=== PATIENT | female | born 1995 | race Caucasian/White ===

== ENCOUNTER → 2022-08-13 | Outpatient (CLI) | payer BC ==
[~2022-08-13] MED LIST: MONT10T PO; Pulmicort Fle180 MCG; SERT25 PO; SERT50 PO
[2022-08-13 19:46] LABS: Albumin, Blood 2.8 g/dL (3.4-5.0); Albumin/Globulin Ratio 0.8 (0.8-1.8); Bilirubin, Total 0.4 mg/dL (0.1-1.0); Bun/Creatinine Ratio 8.3 (12.0-20.0); Calcium, Blood 8.8 mg/dL (8.5-10.1); Creatinine, Blood 0.73 mg/dL (0.40-1.00); Globulin, Blood 3.3 g/dL (2.2-4.0); Potassium, Blood 3.7 mmol/L (3.5-5.5); Total Protein, Blood 6.1 g/dL (6.4-8.2)
[2022-08-19 16:08] LABS: CHENODEOXYCHOLIC ACIDS 1.3 umol/L (.); CHOLIC ACIDS 1.5 umol/L (.); TOTAL BILE ACIDS 3.1 umol/L (.); URSODEOXYCHOLIC ACIDS <0.10 umol/L (.)
== END | disposition home or self-care (01) ==
LOC: LAB 15:50 → LAB SHORT 15:50
PROVIDERS: Advanced Practice Midwife
DX: O09.93 Supervision of high risk pregnancy, unspecified, third trimester (principal); Z3A.00 Weeks of gestation of pregnancy not specified
CPT/HCPCS: 36415; 80053; 82542; 87081; 87150

== ENCOUNTER 2022-09-02 05:14 | Inpatient (IN) | payer BC ==
[2022-09-02] VITALS (14 sets, daily range): BP systolic 97–142; BP diastolic 55–77
[~2022-09-02] VITALS: Ht 157.5 cm; Wt 68.6 kg
[2022-09-02] MEDS ORDERED: SERT25 PO (06:13)
[2022-09-02] MEDS ORDERED: MONT10T PO (06:13)
[2022-09-02] MEDS ORDERED: SERT50 PO (06:14)
[2022-09-02] MEDS ORDERED: Pulmicort Fle180 MCG (06:16)
[2022-09-02 06:44] LABS: BASOPHILS ABSOLUTE AUTO 0.03 K/mm3 (0.00-0.23); BASOPHILS PERCENT AUTO 0 % (0-2); EOSINOPHILS ABSOLUTE AUTO 0.02 K/mm3 (0.00-0.68); EOSINOPHILS PERCENT AUTO 0 % (0-6); IMMATURE GRAN ABSOLUTE AUTO 0.03 K/mm3 (0.00-0.10); IMMATURE GRAN PERCENT AUTO 0 % (0-1); LYMPHOCYTES ABSOLUTE AUTO 1.12 K/mm3 (0.84-5.20); LYMPHOCYTES PERCENT AUTO 13 % (21-46); MONOCYTES ABSOLUTE AUTO 0.42 K/mm3 (0.16-1.47); MONOCYTES PERCENT AUTO 5 % (4-13); Mean Corpuscular HGB 33.2 pg (26.0-34.0); Mean Corpuscular HGB Conc 34.2 g/dL (31.5-36.5); Mean Corpuscular Volume 97 fL (80-100); NEUTROPHILS ABSOLUTE AUTO 6.76 K/mm3 (1.96-9.15); NEUTROPHILS PERCENT AUTO 81 % (41-73); Platelet Count 143 K/mm3 (150-400); RDW Coefficient Variation 12.5 % (11.7-14.2); Red Blood Cell Count 3.91 M/mm3 (3.80-5.20); White Blood Cell Count 8.38 K/mm3 (4.00-11.30)
--- NOTE | 2022-09-02 11:01 | NUR ---
ASSUMED CARE OF PT
--- NOTE | 2022-09-02 11:07 | NUR ---
PT HAS ANAPHYLXIS REACTION TO GLUTEAN AND WHEAT, NOT SURE IF HOSP MOTRIN HAS THAT, PT IS GOING TO BRING HER MOTRIN FROM HOME THAT DOESNT HAVE THOSE,
--- NOTE | 2022-09-02 12:00 | NUR ---
PT GOT A LITTLE WEAK, NOT LIGHT HEADED IN SHOWER, GOT PT BACK TO BED, ENCORUAGED TO CALL RN TO HELP GET UP NEXT TIME JUST FOR STAND BY. PT IS BRINGING HER OWN MOTRIN THAT IS FRRE OF ALL THE STUFF THAT CAUSES HER TO HAVE ANAPHLYXIS REACTIONS.
--- NOTE | 2022-09-02 14:19 | NUR ---
PT TOOK 400MG OF HER OWN MOTRIN, SHE IS AWARE SHE CAN TAKE 400MG EVERY 4 HOURS NEEDED FOR CRAMPING, HER MOTRIN DOESNT HAVE ANYTHING SHE IS ALLERGIC TO. BABY WAKING, PT PLANS TO PUT BABY TO BREAST
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
[2022-09-03 06:21] LABS: Hematocrit 31.9 % (33.0-51.0); Hemoglobin 10.8 g/dL (11.5-16.0); Mean Corpuscular HGB 33.2 pg (26.0-34.0); Mean Corpuscular HGB Conc 33.9 g/dL (31.5-36.5); Mean Corpuscular Volume 98 fL (80-100); Mean Platelet Volume 12.9 fL (9.1-12.4); Platelet Count 114 K/mm3 (150-400); RDW Coefficient Variation 12.6 % (11.7-14.2); RDW Standard Deviation 44.9 fL (35.1-46.3); Red Blood Cell Count 3.25 M/mm3 (3.80-5.20)
[2022-09-03 07:54] VITALS: BP 118/73
--- NOTE | 2022-09-03 10:47 | NUR ---
D/C HOME WITH BABY.
== END 2022-09-03 10:50 | disposition home or self-care (01) | DRG 807 ==
LOC: OBS 05:14 → BC 05:17 → OBS 05:38 → BC 05:39
PROVIDERS: Advanced Practice Midwife; Obstetrics & Gynecology; ADMIT Advanced Practice Midwife
PROC: 10E0XZZ Delivery of Products of Conception, External Approach (ICD-10-PCS; principal; 2022-09-02)
PROC: 0HQ9XZZ Repair Perineum Skin, External Approach (ICD-10-PCS; 2022-09-02)
PROC: 10907ZC Drainage of Amniotic Fluid, Therapeutic from Products of Conception, Via Natural or Artificial Opening (ICD-10-PCS; 2022-09-02)
DX: O99.52 Diseases of the respiratory system complicating childbirth (principal); Z37.0 Single live birth; J45.909 Unspecified asthma, uncomplicated; O99.344 Other mental disorders complicating childbirth; F32.A Depression, unspecified; O70.0 First degree perineal laceration during delivery; O69.1XX0 Labor and delivery complicated by cord around neck, with compression, not applicable or unspecified; Z3A.39 39 weeks gestation of pregnancy; Z98.890 Other specified postprocedural states; Z88.8 Allergy status to other drugs, medicaments and biological substances; Z91.013 Allergy to seafood; Z91.018 Allergy to other foods; Z91.011 Allergy to milk products; Z91.030 Bee allergy status; Z88.1 Allergy status to other antibiotic agents; Z87.19 Personal history of other diseases of the digestive system
CPT/HCPCS: 36415; 59025; 81003; 85025; 85027; 86850; 86900; 86901; J2210; J2590; J7120

== ENCOUNTER → 2024-01-05 | Outpatient (CLI) | payer BC ==
[2024-01-05 10:03] LABS: BASOPHILS ABSOLUTE AUTO 0.02 K/mm3 (0.00-0.23); BASOPHILS PERCENT AUTO 0 % (0-2); EOSINOPHILS ABSOLUTE AUTO 0.05 K/mm3 (0.00-0.68); EOSINOPHILS PERCENT AUTO 1 % (0-6); Hematocrit 34.4 % (33.0-51.0); Hemoglobin 12.3 g/dL (11.5-16.0); IMMATURE GRAN ABSOLUTE AUTO 0.02 K/mm3 (0.00-0.10); IMMATURE GRAN PERCENT AUTO 0 % (0-1); LYMPHOCYTES ABSOLUTE AUTO 0.54 K/mm3 (0.84-5.20); LYMPHOCYTES PERCENT AUTO 8 % (21-46); MONOCYTES ABSOLUTE AUTO 0.35 K/mm3 (0.16-1.47); MONOCYTES PERCENT AUTO 5 % (4-13); Mean Corpuscular HGB 32.6 pg (26.0-34.0); Mean Corpuscular HGB Conc 35.8 g/dL (31.5-36.5); Mean Corpuscular Volume 91 fL (80-100); NEUTROPHILS ABSOLUTE AUTO 5.86 K/mm3 (1.96-9.15); NEUTROPHILS PERCENT AUTO 86 % (41-73); Platelet Count 189 K/mm3 (150-400); RDW Coefficient Variation 12.2 % (11.7-14.2); RDW Standard Deviation 40.7 fL (35.1-46.3); Red Blood Cell Count 3.77 M/mm3 (3.80-5.20); White Blood Cell Count 6.84 K/mm3 (4.00-11.30)
[2024-01-05 10:15] LABS: Albumin, Blood 3.8 g/dL (3.4-5.0); Bilirubin, Total 0.7 mg/dL (0.1-1.0); Bun/Creatinine Ratio 8.3 (12.0-20.0); Calcium, Blood 8.9 mg/dL (8.5-10.1); Creatinine, Blood 0.72 mg/dL (0.40-1.00); Globulin, Blood 3.7 g/dL (2.2-4.0); Potassium, Blood 3.7 mmol/L (3.5-5.5); Total Protein, Blood 7.5 g/dL (6.4-8.2)
== END ==
LOC: LAB SHORT 09:59 → LAB 09:59
PROVIDERS: Family Medicine
DX: R10.11 Right upper quadrant pain (principal)
CPT/HCPCS: 80053; 83690; 85025

== ENCOUNTER → 2024-03-08 | Outpatient (CLI) | payer BC | LOC: LAB 15:44 → LAB SHORT 15:44 | PROVIDERS: Advanced Practice Midwife | DX: Z01.419 Encounter for gynecological examination (general) (routine) without abnormal findings (principal) | CPT/HCPCS: G0123 ==

== ENCOUNTER → 2024-07-12 | Outpatient (CLI) | payer BC | LOC: LAB SHORT 16:17 → LAB 16:17 | DX: Z34.83 Encounter for supervision of other normal pregnancy, third trimester (principal) | CPT/HCPCS: 87081; 87150 ==

== ENCOUNTER 2024-08-08 12:09 | Inpatient (IN) | payer BC ==
[2024-08-08] VITALS (30 sets, daily range): BP systolic 101–142; BP diastolic 55–78
[~2024-08-08] VITALS: Ht 157.5 cm; Wt 67.3 kg
[2024-08-08] MEDS ORDERED: OXYTOCIN/RINGER'S LACTATE 500 ML IV PRN (12:35)
[2024-08-08] MEDS ORDERED: Lactated Ringer's 1,000 ML IV PRN ×2 (12:35)
[2024-08-08] MEDS ORDERED: Calcium Carbonate 500 MG Tab Chew PO SCH (12:35)
[2024-08-08] MEDS ORDERED: FentaNYL 2mcg/ml-Bup 0.1% Epd 250 ML EPI PRN (12:35)
[2024-08-08] MEDS ORDERED: Carboprost Tromethamine 250 MCG/ML 1ML Amp IM PRN ×2 (12:35→16:15)
[2024-08-08] MEDS ORDERED: Acetaminophen 500 MG Tab PO PRN ×2 (12:35→16:20)
[2024-08-08] MEDS ORDERED: Tranexamic Acid 100 ML IV SCH (12:35)
[2024-08-08] MEDS ORDERED: Lactated Ringer's 1,000 ML IV ONE (12:35)
[2024-08-08] MEDS ORDERED: Ondansetron HCl 2 MG / ML 2ML Vial IV PRN (12:35)
[2024-08-08] MEDS ORDERED: Misoprostol 200 MCG Tab BC PRN (12:35)
[2024-08-08] MEDS ORDERED: Misoprostol 200 MCG Tab PR PRN ×2 (12:35→16:10)
[2024-08-08] MEDS ORDERED: Methylergonovine Maleate 0.2MG / ML 1ML Amp IM PRN ×2 (12:35→16:15)
[2024-08-08] MEDS ORDERED: ePHEDrine Sulfate 50 MG/ML 1ML Injection XX PRN (12:35)
[2024-08-08] MEDS ORDERED: Oxytocin 10 Unit / ML Vial IM PRN (12:35)
[2024-08-08] MEDS ORDERED: FentaNYL Citrate 50 MCG/ML 2 ML Injection IV PRN (12:40)
[2024-08-08 13:00] LABS: BASOPHILS ABSOLUTE AUTO 0.04 K/mm3 (0.00-0.23); BASOPHILS PERCENT AUTO 0 % (0-2); EOSINOPHILS ABSOLUTE AUTO 0.04 K/mm3 (0.00-0.68); EOSINOPHILS PERCENT AUTO 0 % (0-6); Hematocrit 37.8 % (33.0-51.0); Hemoglobin 13.4 g/dL (11.5-16.0); IMMATURE GRAN ABSOLUTE AUTO 0.04 K/mm3 (0.00-0.10); IMMATURE GRAN PERCENT AUTO 0 % (0-1); LYMPHOCYTES ABSOLUTE AUTO 1.28 K/mm3 (0.84-5.20); LYMPHOCYTES PERCENT AUTO 14 % (21-46); MONOCYTES ABSOLUTE AUTO 0.57 K/mm3 (0.16-1.47); MONOCYTES PERCENT AUTO 6 % (4-13); Mean Corpuscular HGB 33.8 pg (26.0-34.0); Mean Corpuscular HGB Conc 35.4 g/dL (31.5-36.5); Mean Corpuscular Volume 95 fL (80-100); Mean Platelet Volume 12.7 fL (9.1-12.4); NEUTROPHILS PERCENT AUTO 79 % (41-73); Platelet Count 144 K/mm3 (150-400); RDW Coefficient Variation 12.9 % (11.7-14.2); RDW Standard Deviation 44.6 fL (35.1-46.3); Red Blood Cell Count 3.97 M/mm3 (3.80-5.20); White Blood Cell Count 9.37 K/mm3 (4.00-11.30)
[2024-08-08] MEDS ORDERED: EpiNEPhrine 1 MG/1 ML 1ML Vial IM PRN (14:50)
[2024-08-08] MEDS ORDERED: DiphenhydrAMINE HCl 50 MG/ML 1ML Vial IV PRN (14:50)
[2024-08-08] MEDS ORDERED: MethylPREDNISolone Sod Succ 125 MG Vial IV PRN (14:50)
[2024-08-08] MEDS ORDERED: CeFAZolin Sodium 2,000 MG in NS 100 ML IV ONE (15:40)
[2024-08-08] MEDS ORDERED: NS 1,000 ML IV ONE (15:44)
[2024-08-08] MEDS ORDERED: OXYTOCIN/RINGER'S LACTATE 500 ML IV ONE (15:58)
[2024-08-08] MEDS ORDERED: Oxytocin 10 Unit / ML Vial IM ONE (16:10)
[2024-08-08] MEDS ORDERED: OXYTOCIN/RINGER'S LACTATE 500 ML IV SCH (16:10)
[2024-08-08] MEDS ORDERED: Lactated Ringer's 1,000 ML IV SCH (16:10)
[2024-08-08] MEDS ORDERED: Docusate Sodium 100 MG Cap PO PRN (16:15)
[2024-08-08] MEDS ORDERED: Ketorolac Tromethamine 30mg Vial IV PRN (16:15)
[2024-08-08] MEDS ORDERED: Benzocaine Topical Anesthetic Spray 60GM TOP PRN (16:15)
[2024-08-08] MEDS ORDERED: Witch Hazel/Glycerin PADS TOP PRN (16:20)
[2024-08-08] MEDS ORDERED: Methylergonovine Maleate 0.2MG / ML 1ML Amp IM ONE (17:37)
[2024-08-08] MEDS ORDERED: Misoprostol 200 MCG Tab PO ONE (17:37)
--- NOTE | 2024-08-08 17:44 | NUR ---
08-08-24 1452- BABY GIRL TO MOMS CHEST 1517 NATALYA JEFFY [facility] REQUESTING DR MCCLAIN TO COME AND ASSIST WITH RETAINED PLACENTA [address] MCCLAIN IN ROOM TO ASSIST WITH RETAINED PLACENTA 1530 PT GIVEN FENTANYL 100MCG PRIOR TO MANUAL REMOVAL OF PLACENTA, PLACENTA DELIVERED INTACT 153 PITOCIN TO 250CC/HR, THEN INCREASED TO 999CC/HR PER DR MCCLAIN, METHARGIN 0.2MG IM GIVEN, ULTRASOUND IN ROOM TO VISUALIZE CLOTS IN UTERUS BY DR MCCLAIN AND CLOT REMOVED BY NATALYA. 1534 CYTOTEC 800MCG RECTALLY BY NATALYA 1540 2 UNIT RBC ORDERED, 1 TO BE GIVEN NOW 1542 ANCEF 2GM STARTED 1600 #2 IV, 18GA STARTED IN LEFT FA BY CEDRIC RN 1608 1 UNIT RBC STARTED AT 50CC/HR 1618 ZOFRAN 4MG 1622 BLOOD RATE INCREASED TO 150CC/HR
[2024-08-08 20:12] LABS: Hematocrit 34.9 % (33.0-51.0); Hemoglobin 12.2 g/dL (11.5-16.0); Mean Corpuscular HGB 32.7 pg (26.0-34.0); Mean Corpuscular Volume 94 fL (80-100); Mean Platelet Volume 12.9 fL (9.1-12.4); Platelet Count 131 K/mm3 (150-400); RDW Coefficient Variation 14.5 % (11.7-14.2); RDW Standard Deviation 49.6 fL (35.1-46.3); Red Blood Cell Count 3.73 M/mm3 (3.80-5.20); White Blood Cell Count 16.67 K/mm3 (4.00-11.30)
[2024-08-08 20:45] LABS: International Normalized Ratio 0.98; Prothrombin Time Results 10.8 Sec (9.7-11.5)
[2024-08-09 01:38] VITALS: BP 106/58
[2024-08-09 01:56] LABS: International Normalized Ratio 0.96; Prothrombin Time Results 10.6 Sec (9.7-11.5)
[2024-08-09 02:05] LABS: BASOPHILS ABSOLUTE AUTO 0.04 K/mm3 (0.00-0.23); BASOPHILS PERCENT AUTO 0 % (0-2); EOSINOPHILS ABSOLUTE AUTO 0.12 K/mm3 (0.00-0.68); EOSINOPHILS PERCENT AUTO 1 % (0-6); Hematocrit 30.1 % (33.0-51.0); Hemoglobin 10.7 g/dL (11.5-16.0); IMMATURE GRAN ABSOLUTE AUTO 0.04 K/mm3 (0.00-0.10); IMMATURE GRAN PERCENT AUTO 0 % (0-1); LYMPHOCYTES ABSOLUTE AUTO 2.07 K/mm3 (0.84-5.20); LYMPHOCYTES PERCENT AUTO 18 % (21-46); MONOCYTES ABSOLUTE AUTO 0.93 K/mm3 (0.16-1.47); MONOCYTES PERCENT AUTO 8 % (4-13); Mean Corpuscular HGB 33.6 pg (26.0-34.0); Mean Corpuscular HGB Conc 35.5 g/dL (31.5-36.5); Mean Corpuscular Volume 95 fL (80-100); NEUTROPHILS ABSOLUTE AUTO 8.33 K/mm3 (1.96-9.15); NEUTROPHILS PERCENT AUTO 72 % (41-73); Platelet Count 122 K/mm3 (150-400); RDW Coefficient Variation 14.5 % (11.7-14.2); RDW Standard Deviation 49.5 fL (35.1-46.3); Red Blood Cell Count 3.18 M/mm3 (3.80-5.20); White Blood Cell Count 11.53 K/mm3 (4.00-11.30)
[2024-08-09 02:06] LABS: Mean Platelet Volume 13.5 fL (9.1-12.4)
[2024-08-09 03:38] VITALS: BP 112/63
--- NOTE | 2024-08-09 04:02 | NUR ---
OBTAINED REPORT FROM KE CUMMINGS AT 0340. VITAL SIGNS ARE STABLE AND BLEEDING WAS SCANT. PT WENT TO RESTROOM ON HER OWN WHEN I WENT IN AFTER REPORT, VOIDED 50 ML, NO PAIN REPORTED. PT WENT RIGHT BACK TO SLEEP.
[2024-08-09] MEDS ORDERED: Ibuprofen 400 MG Tab PO PRN (05:00)
[2024-08-09] MEDS ORDERED: NS 1,000 ML IV SCH (05:10)
[2024-08-09 05:43] VITALS: BP 110/76
[2024-08-09 07:30] VITALS: BP 114/57
[2024-08-09] MEDS ORDERED: Prenatal Vit/FE Fumarate/FA 1 Tab PO SCH (09:00)
[2024-08-09 11:12] VITALS: BP 107/57
[2024-08-09 15:18] VITALS: BP 106/66
[2024-08-13] MEDS ORDERED: ALBU90OI INH (10:36)
[2024-08-13] MEDS ORDERED: MONT5TCH PO (10:36)
[2024-08-13] MEDS ORDERED: BUDESONIDE-FO10.2 G2 INH (10:36)
[2024-08-14] MEDS ORDERED: ACET500 PO (10:36)
[2024-08-14] MEDS ORDERED: IBUP800 PO (10:36)
== END 2024-08-09 16:10 | disposition home or self-care (01) | DRG 806 ==
LOC: OBS 12:09 → BC 12:26
PROVIDERS: ADMIT Advanced Practice Midwife
PROC: 10E0XZZ Delivery of Products of Conception, External Approach (ICD-10-PCS; principal; 2024-08-08)
PROC: 10D17Z9 Manual Extraction of Products of Conception, Retained, Via Natural or Artificial Opening (ICD-10-PCS; 2024-08-08)
PROC: 30233N1 Transfusion of Nonautologous Red Blood Cells into Peripheral Vein, Percutaneous Approach (ICD-10-PCS; 2024-08-08)
PROC: 3E0R3BZ Introduction of Anesthetic Agent into Spinal Canal, Percutaneous Approach (ICD-10-PCS; 2024-08-08)
PROC: 00HU33Z Insertion of Infusion Device into Spinal Canal, Percutaneous Approach (ICD-10-PCS; 2024-08-08)
DX: O99.52 Diseases of the respiratory system complicating childbirth (principal); D62 Acute posthemorrhagic anemia; Z37.0 Single live birth; J45.909 Unspecified asthma, uncomplicated; O99.344 Other mental disorders complicating childbirth; F41.8 Other specified anxiety disorders; O26.643 Intrahepatic cholestasis of pregnancy, third trimester; O72.2 Delayed and secondary postpartum hemorrhage; O70.0 First degree perineal laceration during delivery; Z79.51 Long term (current) use of inhaled steroids; Z79.899 Other long term (current) drug therapy; Z91.018 Allergy to other foods; Z91.09 Other allergy status, other than to drugs and biological substances; Z3A.39 39 weeks gestation of pregnancy
CPT/HCPCS: 36415; 36430; 59025; 85025; 85027; 85384; 85610; 85730; 86850; 86900; 86901; 86923; 99214; A9270; J0690; J2210; J2405; J2590; J3010; J7030; P9016